=== PATIENT | female | born 1980 | race Caucasian/White ===

== ENCOUNTER 2016-08-18 00:23 | Inpatient (IN) | payer OTHER ==
[~2016-08-18] VITALS: Ht 152.4 cm; Wt 80.3 kg
[~2016-08-18 00:23] MED LIST: HYDR-4003 PO
[2016-08-18] MEDS ORDERED: Lactated Ringer's 1,000 ML IV PRN (08:29)
[2016-08-18] MEDS ORDERED: Sodium Chloride LOK Flush 10 mL Syringe IVFLUSH PRN (08:30)
[2016-08-18] MEDS ORDERED: Oxytocin 30 Units/500 mL LR 30 UNITS in IV Premix 1 EACH IV PRN (08:30)
[2016-08-18] MEDS ORDERED: Methylergonovine 0.2 mg/mL Inj IM PRN (08:30)
[2016-08-18] MEDS ORDERED: Misoprostol 25 mCg/0.25 Tablet VAGINAL SCH (08:30)
[2016-08-18] MEDS ORDERED: Oxytocin 10 Unit/mL Inj IM PRN (08:30)
[2016-08-18] MEDS ORDERED: Carboprost 250 mCg/mL Inj IM PRN (08:30)
[2016-08-18] MEDS ORDERED: Hemorrhage Kit, Post Partum XX ONE (08:30)
[2016-08-18] MEDS ORDERED: fentaNYL-PF 50 mCg/mL 2 mL Inj IVPUSH PRN (08:35)
[2016-08-18] MEDS ORDERED: Ondansetron 2 mg/mL 2 mL Inj IVPUSH PRN (08:35)
[2016-08-18 09:38] LABS: Mean Corpuscular Volume 91.7 fL (81-100)
--- NOTE | 2016-08-18 16:15 | PCM.HPOB ---
Subjective Date of Service: Aug 18, 2016 Referring Provider: Admitting Physician: Elba Ramachandran MD Primary Care Physician: Nopcp Attending Physician: Elba Ramachandran MD Chief Complaint Induction of labor History of Present History of Present Illness 36-year-old G3A2P0 at 41 weeks 2 days gestation presenting to the [facility] for induction of labor. She has a high risk complicated by multiple large uterine fibroids and small pelvis. Additionally, there was concern early on for neural tube defects with a positive lemon sign on ultrasound but repeat scans showing no evidence of open neural tube defect. She had an amniocentesis done on 03/14/2016 which showed a normal karyotype. She was positive for Anti-D Antibody but this is likely related to receiving Rhogam on and she did receive another injection of Rhogam on 05/19/2016. 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 Patient reports normal movement with contractions every 4-5minutes. She denies vaginal bleeding or discharge, headaches, dizziness, changes in vision, GI or symptoms. NST on 08/12/16 wnl. OB History: (3), Para, (2), Living (1) Obstetrical Complications: Other (Multiple large uterine fibroids; Positive Lemon sign on US with no evidence of open neural tube defect. Normal karyotype on amniocentesis. Hx of HSV. ) Past Medical History Obstetrical History: Induced - 1995 Induced - 1997 Medical History: HSV Surgical History: [place] teeth removal 2007 Social History: Lives locally with significant other/father of baby. Hx Tobacco Use: Yes Smoking Status: Former Smoker Hx Alcohol Use: No Hx Substance Use: No Past Family History Family History Maternal grandmother- cancer Living Arrangement: with Family Genetic Screening/Counseling Genetic Screening/Counseling: Negative Review of Systems ROS All other systems reviewed and negative, except as noted. Medications Home medications Valdemar-Mag 200mg-100mg Lysine vitamins Valacyclovir 500mg po bid Vitamin D- 400mg daily Allergy Coded Allergies: No Known Allergies (Unverified , 02/14/16) Exam Vital Signs All vital signs available at the time of this entry have been reviewed. Constitutional: Well-developed, Well-nourished HEENT: Atraumatic, PERRLA Lungs: Clear to Auscultation Heart: Regular Rate/Rhythm, No Murmurs/Rubs/Gallops Abdomen: Gravid, Normal bowel sounds Extremities: Pulses Palpable x4, Warm, Edema Neurological/Psychiatric: Alert, Oriented X3, No Acute Distress Neuro: Grossly Neurologically Intact Additional Information Current Medications Misoprostol 25 mcg Q4H VAGINAL Last administered on 08/18/16 09:53; Admin Dose 25 MCG; Start 08/18/16 at 08:30 Fentanyl Citrate Dose 50 mcg to 100 mcg Q1H PRN IV PUSH Ondansetron HCl Dose: 4 mg to 8 mg Q4H PRN IV PUSH Misoprostol 25 mcg Q4H VAGINAL Last administered on 08/18/16 09:53 Labs/Diagnostics Labs 08/18/16 09:20: White Blood Count 14.3, Red Blood Count 4.44, Hemoglobin 14.2, Hematocrit 40.7, Mean Corpuscular Volume 91.7, Mean Corpuscular Hemoglobin 32.0, Mean Corpuscular Hemoglobin Concent 34.9, Red Cell Distribution Width 14.8, Platelet Count 253 . Ultra Sound 03/14/2016- OB Ultrasound Impression: Sol in cephalic presentation. Four chamber view of the heart and outflow tracts not well seen. Sagittal view of spines was also suboptimally visualized. Slight prominence of the third ventricle with normally sized lateral ventricles. Remainder of anatomy appeared normal. Multifibroid uterus. Radiologist: Kofi Crews MD . Lab/Diagnostic Information Chlamydia- negative Gonorrhea- negative RPR- non reactive HBsAg- negative HIV screen- negative Initial labs: 01/15/2016 HbA1c 5.5, T4 1.04, HepC-negative. Maternal Blood Type: B Hx Rho(D) Immune Globulin: No Antibody Screen: + Anti-D Antibody likely related to Rhogam given 03/14/16. Group B Strep Results: Negative Rubella: Immune Lab History: Positive for: Hx HIV (on acyclovir) OB Intrapartum Assessment/Plan Assessment 36 y/o G3A2P0 at 41 weeks 2 days gestation presenting to the [facility] for induction of labor. She has a high risk complicated by multiple large uterine fibroids and small pelvis. Additional concerns include a hx of HSV, RH negative, positive Anti-D antibody and concern early in her for neural tube defects with a positive lemon sign on ultrasound. Repeat scans have shown shown no evidence of open neural tube defect. Currently on prophylactic alcyclovir. Due to her small pelvis and advanced gestation she may need a delivery but patient has requested a trial of labor. Problems: (1) Uterine leiomyoma Status: Acute ICD Code: D25.9 (2) Post-term , 40-42 weeks of gestation Status: Acute ICD Code: O48.0 Pain Management: Spinal anesthesia Pain Evaluation: Adequate Pain Control Intrapartum plan IOL with trial of labor and possible . Post plan: Continue routine post care Mary Arciniega DO Aug 18, 2016 13:43
[2016-08-18] MEDS ORDERED: Lactated Ringer's 1,000 ML IV SCH (17:46)
[2016-08-18] MEDS ORDERED: diphenhydrAMINE 25 mg Capsule PO PRN (19:10)
--- NOTE | 2016-08-18 19:23 | PCM.PNOBIP ---
Subjective Date of Service Aug 18, 2016 Subjective intermittent contractions mild every 10 minutes were stronger earlier today. Pain Management: No or Minimal Pain Gastrointestinal: Good Appetite, No N/V Activity: Ambulating Independently Group B Strep Results: Negative Rubella: Immune Blood Type: B Labs Laboratory Tests 08/18/16 09:20: White Blood Count 14.3, Red Blood Count 4.44, Hemoglobin 14.2, Hematocrit 40.7, Mean Corpuscular Volume 91.7, Mean Corpuscular Hemoglobin 32.0, Mean Corpuscular Hemoglobin Concent 34.9, Red Cell Distribution Width 14.8, Platelet Count 253 Exam Vital Signs Vital Signs Contraction frequency in minutes: MVUs: Vital Signs: VS reviewed, stable Heart Tracings Heart Tones Baseline 125 bpm Heart Rate Variability: Moderate Heart Rate Accelleration: Present Heart Rate Deceleration: Absent Heart Rate Category: I Tocometry/IUPC Contraction frequency in minutes: MVUs: Sterile Vaginal Exam Cervical Dilation: 1 cm (1.5 ) Cervical Effacement: 50 % Station: -3 Exam General: Alert, Oriented X3, No Acute Distress Additional Information Cephalic presentation confirmed by bedside US OB Intrapartum Assessment/Plan Assessment 36 y/o at 41 weeks 2 days gestation induction of labor for late term. complicated by: 1. multiple large uterine fibroids and concern of possible small pelvis. 2. H/O of HSV 3. RH negative. negative antibody screen on admission. 4. Elevated AFP and early a positive lemon sign on ultrasound. Repeat scans have shown shown no evidence of open neural tube defect. Continue cervical ripening. Will switch to Cervidil. Problems: (1) Uterine leiomyoma Status: Acute ICD Code: D25.9 (2) Post-term , 40-42 weeks of gestation Status: Acute ICD Code: O48.0 Pain Evaluation: Adequate Pain Control Post plan: Continue routine post care Donis Azar MD Aug 18, 2016 19:23
[2016-08-18] MEDS ORDERED: VALA500T2 PO (22:34)
--- NOTE | 2016-08-18 22:56 | PCM.DC.OB ---
Obstetrical Discharge Summary Date of Service Aug 18, 2016 Date of hospital admission Aug 18, 2016 at 07:05 Date of Discharge: Aug 18, 2016 Providers Admitting Physician: Elba Ramachandran MD Primary Care Physician: Ora Attending Physician: Elba Ramachandran MD Diagnosis at Time of Discharge 36 y/o at 41 weeks 2 days gestation induction of labor for late term on hold for short staffing. Category 1 tracing. Problems: (1) Uterine leiomyoma Status: Acute ICD Code: D25.9 (2) Post-term , 40-42 weeks of gestation Status: Acute ICD Code: O48.0 Brief History and Physical: 36-year-old G3A2P0 at 41 weeks 2 days gestation presenting to the [facility] for induction of labor. Hospital Course: complicated by: 1. multiple large uterine fibroids and concern of possibly small pelvis. 2. H/O of HSV on suppression 3. RH negative. negative antibody screen on admission. 4. Elevated AFP and early a positive lemon sign on ultrasound. Repeat scans have shown shown no evidence of open neural tube defect. Amniocenteses normal karyotype. Patient received one dose of misoprostol on admission. Plan of care was to continue cervical ripening with Cervidil overnight but secondary to shortage in nursing staff were not able to continue with induction overnight. I explained situation to patient hold induction overnight and to reassess staff situation in the morning and may restart induction in the morning. Patient desires to sleep the night at home and will reschedule induction to Thursday08/20/16 at 7 am, patient to call one hour before the scheduled induction to confirm bed availability. Patient aware that availability of bed is not guaranteed and may have to be rescheduled again. Patient desires discharge tonight and will return if contractions worsen, loss of fluid or decreased movements. Reviewed preeclampsia and labor precautions with patient and all questions were answered. 136/83, 16, HR 81 , 36.8 , pain at 1. FHT: 130 moderate variability , positive accelerations and no deceleration. category 1. Cervix 1.5cm/60%/0/intact membranes. Membranes were stripped. Lext: no edema. Valacyclovir HCl (Valtrex) 500 Mg Tablet 500 MG PO BID Prescribed by: RUBY NORIEGA MD Discontinued Medications Hydrocodone-Acetaminophen 5-325 mg (Hydrocodone-Acetaminophen 5-325 mg) 1 Each Tablet 1-3 TABLET PO Q4H PRN PRN For Pain Prescribed by: DANITZA CANALES MD Disposition home. Follow-up plan Keep schedule d appointment tomorrow with OB provider- [facility] Induction to Thursday08/20/16 at 7 am, patient to call on Thursday08/20/16 at 6 am to confirm bed availability. Discharge Diet: Heart Healthy Discharge Activity-General: Activity as energy allows, No lifting >15 pounds for 2 weeks Ruby Noriega MD Aug 18, 2016 22:55
[2016-08-18 23:06] VITALS: BP 136/83; PULSE 81; RESP 16
== END 2016-08-18 23:30 | disposition home or self-care (01) | DRG 782 ==
LOC: FBC 07:05
PROVIDERS: ADMIT Obstetrics & Gynecology; ATTEND Obstetrics & Gynecology
PROC: 3E033VJ Introduction of Other Hormone into Peripheral Vein, Percutaneous Approach (ICD-10-PCS; principal; 2016-08-18)
PROC: 10H07YZ Insertion of Other Device into Products of Conception, Via Natural or Artificial Opening (ICD-10-PCS; 2016-08-18)
DX: O48.0 Post-term pregnancy (principal); O34.13 Maternal care for benign tumor of corpus uteri, third trimester; D25.9 Leiomyoma of uterus, unspecified; O99.333 Smoking (tobacco) complicating pregnancy, third trimester; F17.200 Nicotine dependence, unspecified, uncomplicated; Z3A.41 41 weeks gestation of pregnancy; O09.523 Supervision of elderly multigravida, third trimester

== ENCOUNTER 2016-08-19 10:41 | Inpatient (IN) | payer OTHER ==
[~2016-08-19] VITALS: Ht 154.9 cm; Wt 78.9 kg
[~2016-08-19 10:41] MED LIST changes: -HYDR-4003 PO; +VALA500T2 PO
[2016-08-19] MEDS ORDERED: Lactated Ringer's 1,000 ML IV PRN ×2 (11:14→11:47)
[2016-08-19] MEDS ORDERED: Carboprost 250 mCg/mL Inj IM PRN ×2 (11:15→11:50)
[2016-08-19] MEDS ORDERED: Oxytocin 30 Units/500 mL LR 30 UNITS in IV Premix 1 EACH IV PRN ×3 (11:15→18:45)
[2016-08-19] MEDS ORDERED: Oxytocin 10 Unit/mL Inj IM PRN ×2 (11:15→11:50)
[2016-08-19] MEDS ORDERED: Ondansetron 2 mg/mL 2 mL Inj IVPUSH PRN ×3 (11:15→23:45)
[2016-08-19] MEDS ORDERED: Sodium Chloride LOK Flush 10 mL Syringe IVFLUSH PRN ×2 (11:15→11:50)
[2016-08-19] MEDS ORDERED: Hemorrhage Kit, Post Partum XX ONE ×2 (11:15→11:50)
[2016-08-19] MEDS ORDERED: Methylergonovine 0.2 mg/mL Inj IM PRN ×2 (11:15→11:50)
[2016-08-19] MEDS ORDERED: diphenhydrAMINE 50 mg Capsule PO PRN (11:50)
[2016-08-19 12:11] LABS: Mean Corpuscular Hemoglobin 31.9 pg (27.0-35.0); Mean Corpuscular Volume 91.2 fL (81-100)
--- NOTE | 2016-08-19 12:20 | PCM.HPOB ---
Subjective Date of Service: Aug 19, 2016 Referring Provider: Admitting Physician: Elba Ramachandran MD Primary Care Physician: Nopcp Attending Physician: Elba Ramachandran MD Chief Complaint Increase contractions at 41 weeks gestation History of Present History of Present Illness 36-year-old woman 020 41 weeks 3 days estimated due date of 08/09/2016. Presents to outpatient clinic for complaint of increased contractions, more frequent and more intense and were affecting her sleep. She was scheduled for an induction of labor on August 18, however was sent home and the plan was to reschedule. However this morning and recheck in the office she was 80% effaced , 3 cm dilated and had moved to -2 station. Complications affecting Advanced maternal age, amniocentesis done 03/14/2016 demonstrated normal XY. RhoGAM was given at time of amniocentesis on 03/14/2016, and 05/19/2016 2 outbreaks of herpes simplex virus during , has been on prophylaxis since 36 weeks gestation, was discussed the high risk of transmission and possible delivery if needed. Ultrasound from maternal medicine at [facility] showed no evidence of open neural tube defects, there was elevated AFP. Positive anti-D antibody. Blood type B negative Antibody screen negative Rubella immune RPR nonreactive Hepatitis B surface antigen negative Hepatitis C negative HIV nonreactive Group B strep negative Committee and gonorrhea negative Diabetes screen negative, A1c 5.5 Past Medical History Obstetrical History: 2 previous abortions Gynecologic History: Multiple uterine fibroids Medical History: Denies Surgical History: Elective at 15 years old [place] teeth extraction Hx Tobacco Use: Yes Smoking Status: Former Smoker Years of Smokin Hx Alcohol Use: Yes Hx Substance Use: Yes (marijuana, 4 days ago was most recent, states she has been using it to help her sleep during ) Past Family History Family History Maternal grandmother breast cancer Paternal grandfather lung cancer, "cancer" Father " from heart problems" history of substance chemical abuse Mother alive and healthy Review of Systems Constitutional: Y: Chills, Dizziness, Pain, Weakness Eyes: Denies: Blurred Vision Cardiovascular: Denies: Chest Pain, Palpitations Respiratory: Denies: Cough, Pleuritic Chest Pain Gastrointestinal: Reports: Nausea, Denies: Abdominal Pain Genitourinary: Denies: Dysuria Musculoskeletal: Denies: Limitation of Function, Swelling Skin: Denies: Rash Neurological: Denies: Change in Speech, Confusion, Somnolence Psychologic: Denies: Agitation Medications Home medications vitamin daily Allergy Coded Allergies: No Known Allergies (Unverified , 02/14/16) Exam Vital Signs 36.4C 89 bpm, 18 respirations per minute 122/77, weight 174 pounds Exam 130 bpm Baseline, moderate variability, 15 x 15, no decelerations Objective Patient is sitting on medicine ball, moderate distress during contractions. Constitutional: Well-developed, Well-nourished HEENT: Atraumatic, EOMI, Scleral Anicteric Lungs: Clear to Auscultation Heart: Regular Rate/Rhythm, Normal S1, Normal S2, No Murmurs/Rubs/Gallops Abdomen: Gravid Lymphatic: Normal: Axilla Palpation of Nodes, Neck Palpation of Nodes Extremities: Warm, No Edema Neurological/Psychiatric: Alert, Oriented X3, Cooperative, No Acute Distress Neuro: No Clonus noted, Normal Tone, Cranial Nerves 3-12 nl, Normal Speech Labs/Diagnostics Labs CBC, pending. Ultra Sound 07/15/2016 ultrasound impression growth biometry is concordant and appropriate for gestational age Anterior placenta, no previa Limited anatomy within normal limits. RICHARD 16.5 estimated weight 6 lbs. 4 oz., 41st percentile Maternal Blood Type: B Group B Strep Results: Negative Previous Infant with GBS: No Rubella: Immune OB Intrapartum Assessment/Plan Assessment 36-year-old woman at 41 weeks gestation presents with increased frequency and intensity of contractions, cervical dilation 3 cm, effacement 80%, and station - 2 without rupture of membranes. is complicated by advanced maternal age, numerous fibroids, she has received several ultrasounds from [facility] most recently 07/15/2016, patient states that she has been told that previous questionable anatomy such as poor view of all 4 chambers of the heart, and lemon sign, has resolved. Problems: (1) Currently Qualifiers: Weeks of gestation: 41 weeks Qualified Code: O48.0 - Post-term Status: Acute ICD Code: Z33.1 (2) Uterine leiomyoma Status: Acute ICD Code: D25.9 (3) Post-term , 40-42 weeks of gestation Status: Acute ICD Code: O48.0 Pain Management: Patient said she would like to do without an epidural, however is not completely opposed to it if the discomfort becomes too much for her to handle. Intrapartum plan Mother and monitoring, routine, plan for spontaneous vaginal delivery. Franklin Kovacs DO Aug 19, 2016 11:34
--- NOTE | 2016-08-19 16:37 | PCM.PNOBIP ---
Subjective Date of Service Aug 19, 2016 Subjective Doing well. Declined SROM and pitocin earlier as she was kristin on her own. Breathing through contractions. Group B Strep Results: Negative Rubella: Immune Blood Type: B Labs Laboratory Tests 08/19/16 11:45: White Blood Count 17.9, Red Blood Count 4.52, Hemoglobin 14.4, Hematocrit 41.2, Mean Corpuscular Volume 91.2, Mean Corpuscular Hemoglobin 31.9, Mean Corpuscular Hemoglobin Concent 35.0, Red Cell Distribution Width 14.8, Platelet Count 252 Exam Vital Signs Vital Signs Contraction frequency in minutes: MVUs: Vital Signs: VS reviewed, concerns are (BP elevated 120-140's/70-80's. ) Heart Tracings Heart Tones Baseline 140/moderate/15x15 accels bpm Heart Rate Variability: Moderate Heart Rate Deceleration: Absent Heart Rate Category: I Tocometry/IUPC Contraction frequency in minutes: Q9 Sterile Vaginal Exam AROM completed with small amount of clear fluid Cervical Dilation: 4 cms Cervical Effacement: 80 % Station: -2 Exam General: Alert, Oriented X3, Cooperative, No Acute Distress OB Intrapartum Assessment/Plan Problems: (1) Currently Qualifiers: Weeks of gestation: 41 weeks Qualified Code: O48.0 - Post-term Status: Acute ICD Code: Z33.1 (2) Uterine leiomyoma Status: Acute ICD Code: D25.9 (3) Post-term , 40-42 weeks of gestation Plan: Continue expectant management at this time. AROM completed and she declines starting pitocin at this time. She understands that she will need to start pitocin if labor does not ensure after AROM and the increased risk of ascending infection after prolonged period of time of rupture. heart tones are category 1., she does however have a narrow pelvis. Will follow closely. Blood pressures are also mildly elevated, likely related to pain. CBC is normal , will order CMP and monitor. Magnesium as needed for severe range BP. Status: Acute ICD Code: O48.0 Elba Ramachandran MD Aug 19, 2016 16:37
[2016-08-19] MEDS: Lactated Ringer's 1,000 ML IV SCH ×2 (18:41→23:31)
--- NOTE | 2016-08-19 21:52 | PCM.PNOBIP ---
Subjective Date of Service Aug 19, 2016 Subjective Doing well, breathing through contractions which are very painful. On pitocin, currently at 4mu. Group B Strep Results: Negative Rubella: Immune Blood Type: B Labs Laboratory Tests 08/19/16 11:45: White Blood Count 17.9, Red Blood Count 4.52, Hemoglobin 14.4, Hematocrit 41.2, Mean Corpuscular Volume 91.2, Mean Corpuscular Hemoglobin 31.9, Mean Corpuscular Hemoglobin Concent 35.0, Red Cell Distribution Width 14.8, Platelet Count 252 Exam Vital Signs Vital Signs Contraction frequency in minutes: MVUs: Vital Signs: VS reviewed, stable (BP 120-130's/70-80's) Heart Tracings Heart Tones Baseline 130/moderate/ bpm 15x15 accelerations Heart Rate Category: I Tocometry/IUPC Contraction frequency in minutes: 150s/MVUs: with tripling and irregular monitors Sterile Vaginal Exam Cervical Dilation: 5 cms Cervical Effacement: 90 % Station: -2 Exam General: Alert, Oriented X3, Cooperative, No Acute Distress OB Intrapartum Assessment/Plan Problems: (1) Currently Qualifiers: Weeks of gestation: 41 weeks Qualified Code: O48.0 - Post-term Plan: IUPC placed at bedside. Irregular contraction pattern. Continue pitocin , not yet in active labor. Status: Acute ICD Code: Z33.1 (2) Uterine leiomyoma Status: Acute ICD Code: D25.9 (3) Post-term , 40-42 weeks of gestation Status: Acute ICD Code: O48.0 Intrapartum plan: Continue expected management, IUPC placed Intrapartum Pain Management: May have epidural when desired Elba Ramachandran MD Aug 19, 2016 21:52
[2016-08-19] MEDS: fentaNYL-PF 50 mCg/mL 2 mL Inj IVPUSH PRN ×2 (22:15→23:24)
[2016-08-19] MEDS ORDERED: Lactated Ringer's 500 ML IV ONE (23:41)
[2016-08-19] MEDS ORDERED: EPHEDrine Sulfate 50 mg/mL Inj IVPUSH PRN (23:45)
[2016-08-19] MEDS ORDERED: Atropine 1 mg/10 mL (Code) Syringe IVPUSH PRN (23:45)
[2016-08-19] MEDS ORDERED: fentaNYL 2 mCg/mL-Bupiv 0.125% 100 ML EPIDURAL SCH (23:45)
--- NOTE | 2016-08-20 00:22 | PCM.HPANE ---
Patient Data Date of Service: Aug 19, 2016 Surgeon Admitting Provider:Elba Ramachandran MD Attending Provider:Elba Ramachandran MD Primary Care Physician:Ora Other Provider:Tracee Ramirez Anesthesia Reason for Visit Term Early Labor TERM EARLY LABOR Ht/WT & BMI Height (Centimeters): 155 Weight (Kilograms): 78.9 Body Mass Index 32.9 Allergies Coded Allergies: No Known Allergies (Unverified , 02/14/16) Diabetes History Hx Diabetes?: No MRSA MRSA: No Medications Hypertension Medication: No Home Meds Incl Beta Shabnam: No Active Scripts Valacyclovir HCl (Valtrex)500 Mg [id number] Mg PO BID #20 TABLET Ref 0 Prov:Donis Azar MD 08/18/16 Discontinued Scripts Hydrocodone-Acetaminophen 5-325 mg 1 Each Tablet1-3 Tablet PO Q4H PRN For Pain # 20 TABLET Prov:Miguelito Price MD 02/14/16 History History of ENT Problems?: No Hx of Heart Problems?: No Cardiovascular History: Denies:: Congestive Heart Failure Hypertension Hx of Respiratory Problem?: No Respiratory History: Denies:: Tuberculosis Hx Neurologic Problems?: No Hx of GI Problems?: No Hx of Problems?: No Female Hx: Positive for:: Currently Hx Musculoskeletal Problems?: No Hx of Psycho/Social Problems?: No Hx Diabetes: No Hx Alcohol Use: YesHx Substance Use: Yes (marijuana, 4 days ago was most recent, states she has been using it to help her sleep during ) Smoking Status: Former Smoker Stop/Bang Treated for Sleep Apnea?: No Do You Have a CPAP Machine?: No KYLER Risk Assessment: Low Risk, <3 Yes Risk Assessment Category Category 1A: Patient has history of documented sleep apnea, and HAS NOT received any narcotic, sedative or anesthesia administration during this stay. Category 1B: Patient has history of documented sleep apnea, and HAS received any narcotic , sedative or anesthesia administration during this stay Category 2: Patient has SUSPECTED Obstructive Sleep Apnea, and HAS received any narcotic , sedative or anesthesia administration during this stay. Category 3: Patient has SUSPECTED Obstructive Sleep Apnea and HAS NOT received narcotic, sedative or anesthesia administration during this stay. Category 4: Outpatient in Procedural Areas with known sleep apnea or who screen positive for High Risk via the STOP/BANG questionnaire. Exam Exam Vital Signs See OB documentation General Appearance: Alert, Oriented X3, Cooperative HEENT/AIRWAY: MP 2, Neck Movement (Full), Mouth Opening (Wide) Lungs: Clear to Auscultation, Normal Air Movement Heart: Regular Rate/Rhythm, Normal S1, Normal S2 Meds/Labs/Diagnostics Admission Meds Current Medications Lactated Ringer's (Lr) 1,000 ml @ 125 mls/hr Q8H IV Last administered on t 23:31; Start 08/19/16 at 11:47 Labs Test 08/19/16 11:40 08/19/16 11:45 08/19/16 22:15 Hold Urine Received (Received) Urine Opiates Screen Negative Urine Methadone Screen Negative Urine Barbiturates Screen Negative Urine Amphetamines Screen Negative Urine Benzodiazepines Screen Negative Urine Cocaine Metabolite Screen Negative Urine Cannabinoids Screen Positive White Blood Count 17.9th/mm3 (3.8-10.1) Red Blood Count 4.52mil/mm3 (3.90-5.20) Hemoglobin 14.4g/dL (12.0-15.6) Hematocrit 41.2% (35.0-46.0) Mean Corpuscular Volume 91.2fL (81-100) Mean Corpuscular Hemoglobin 31.9pg (27.0-35.0) Mean Corpuscular Hemoglobin Concent 35.0% (32.0-37.0) Red Cell Distribution Width 14.8% (12.3-15.4) Platelet Count 252bil/L (150-400) Sodium Level 132mEq/L (134-144) Potassium Level 4.0mEq/L (3.5-5.2) Chloride Level 96mEq/L (97-108) Carbon Dioxide Level 18mmol/L (18-29) Blood Urea Nitrogen 10mg/dL (6-20) Creatinine 0.68mg/dL (0.57-1.00) Estimat Glomerular Filtration Rate 139mL/min (>59) Glucose Level 114mg/dL (60-99) Calcium Level 9.1mg/dL (8.5-10.1) Total Bilirubin 0.5mg/dL (0.0-1.2) Aspartate Amino Transf (AST/SGOT) 18U/L (0-50) Alanine Aminotransferase (ALT/SGPT) 13U/L (0-32) Alkaline Phosphatase 190U/L (25-150) Total Protein 7.2g/dL (6.4-8.4) Albumin 3.6g/dL (3.4-5.0) Plan Impression Patient chart reviewed, patient interviewed and anesthestic plan with risks, benefits, and alternatives discussed, and informed consent obtained. NPO Status: Full ASA Physical Status: ASA1 Normal Healthy Anesthetic Plan: Epidural Bene/Risks/Altern/Consents: Yes HP Complete Prior to Induction: Yes Daniel Bellamy MD Aug 19, 2016 23:40
[2016-08-20] MEDS ORDERED: Sodium Chloride LOK Flush 10 mL Syringe IVFLUSH SCH (00:30)
[2016-08-20] MEDS ORDERED: EPHEDrine/NS 5 mg/mL 5 mL Syringe ONE (01:01)
--- NOTE | 2016-08-20 01:04 | PCM.PNOBIP ---
Subjective Date of Service Aug 20, 2016 Subjective Called for bradycardia shortly after epidural placement. Patient checked by RN and cervix 6-7 now and FSE placed. BP dropped from 120-140's SBP down to 90's after epidural. Pitocin had been at 4mu and turned off with deceleration. Group B Strep Results: Negative Rubella: Immune Blood Type: B Labs Laboratory Tests 08/19/16 11:45: White Blood Count 17.9, Red Blood Count 4.52, Hemoglobin 14.4, Hematocrit 41.2, Mean Corpuscular Volume 91.2, Mean Corpuscular Hemoglobin 31.9, Mean Corpuscular Hemoglobin Concent 35.0, Red Cell Distribution Width 14.8, Platelet Count 252 Exam Vital Signs Vital Signs Contraction frequency in minutes: MVUs: Vital Signs: VS reviewed, stable (120's-140's/70-80's, decreased to 80-90's/40- 50's with epidural ) Heart Tracings Heart Tones Baseline 140's/moderate/early and occasional late deceleration w/ contractions, prior to epidural was having early decelerations Tocometry/IUPC [id number] frequency in minutes: 150 MVUs: Sterile Vaginal Exam Per RN 6-7 cm Exam General: Alert, Oriented X3, Cooperative OB Intrapartum Assessment/Plan Problems: (1) Currently Qualifiers: Weeks of gestation: 41 weeks Qualified Code: O48.0 - Post-term Plan: Continue resuscitation at this time. Pitocin turned off, 02 given , receiving IVF bolus at this time. Will give ephedrine to help with blood pressure issues. May use terbutaline as needed to help desk consultant with recovery. Will restart pitocin when blood pressures and heart tones stabilize. Status: Acute ICD Code: Z33.1 (2) Uterine leiomyoma Status: Acute ICD Code: D25.9 (3) Post-term , 40-42 weeks of gestation Status: Acute ICD Code: O48.0 Intrapartum plan: Continue expected management, IUPC placed Intrapartum Pain Management: May have epidural when desired Elba Ramachandran MD Aug 20, 2016 01:04
[2016-08-20] MEDS: Lactated Ringer's 1,000 ML IV SCH ×3 (01:18→07:08)
[2016-08-20] MEDS ORDERED: Lactated Ringer's 1,000 ML IV SCH (09:43)
[2016-08-20] MEDS ORDERED: oxyCODONE-Acetamin 5-325 mg Tablet PO PRN (09:45)
[2016-08-20] MEDS ORDERED: Carboprost 250 mCg/mL Inj IM PRN (09:45)
[2016-08-20] MEDS ORDERED: LANOlin HPA 7 Gm Ointment TOPICAL PRN (09:45)
[2016-08-20] MEDS ORDERED: Methylergonovine 0.2 mg/mL Inj IM PRN (09:45)
[2016-08-20] MEDS ORDERED: Witch Hazel-Glycerin Pads TOPICAL PRN (09:45)
[2016-08-20] MEDS ORDERED: Oxytocin 10 Unit/mL Inj IM PRN (09:45)
[2016-08-20] MEDS ORDERED: Hemorrhage Kit, Post Partum XX ONE (09:45)
[2016-08-20] MEDS ORDERED: Oxytocin 30 Units/500 mL LR 30 UNITS in IV Premix 1 EACH IV PRN (09:45)
[2016-08-20] MEDS ORDERED: Benzocaine (Dermoplast) 20% 60 Gm Spray TOPICAL PRN (09:45)
--- NOTE | 2016-08-20 09:54 | PCM.OBVAG ---
Vaginal Delivery Date of Service Aug 20, 2016 Pre Operative Diagnosis Pre Operative Diagnosis 41 weeks 3 days Gestation AMA Uterine Fibroids Post Operative Diagnosis Post Operative Diagnosis 41 weeks 3 days Gestation AMA Uterine Fibroids Second Degree Perineal laceration Procedure Procedure: with repair of second degree perineal laceration Obstetical Procedure: Normal Spontaneous Vaginal Delivery Service Cashier/Bundle Helper Provider and Bundle Helper: Provider: Roxanne Cruz MD Resident: Mary Arciniega DO PGY1 Indication for Procedure Indication for Procedure 36 y/o G3 now P1 at 41weeks and 3days gestation whose was complicated by an enlarged fibroid uterus, AMA, lemon sign on anatomy ultrasound, but negative aneuploidy screening who was brought in for an elective induction. Induction: Induction of labor, AROM, Progressed normally through labor Findings Obstetrical Findings: (Male), Cord (3 Vessel), Presentation (OA), 1 minute (7), 5 minutes (9), Placenta (Intact/Normal), Perineal Laceration (2nd degree) Analgesia/Medications Obstetrical Anesthesia: Epidural Procedure Details Procedure Details Patient was completely dilated at 0528 and began pushing. There was thick meconium stained amniotic fluid during this time and pediatricians were notified and present at delivery. The was delivered in an OA position at 0923. The placenta was delivered intact with a three vessel cord at 0929hrs. On insepction of the vagina, cervix and perineum there was a small second degree perineal laceration that was repaired in the standard fashion with 0-vicryl suture. Cord blood was sent. was placed on maternal chest for skin to skin bonding and infant's weight was not immediately available at time of delivery. IV Intake/Output Catheters: None Blood Loss & Administration Estimated Blood Loss: 200 Blood Admin during procedure: No Post Procedure Plan Post Procedure Plan Routine care Post delivery Condition: Mom stable Roxanne Cruz MD Aug 20, 2016 09:54
[2016-08-20] MEDS ORDERED: Ascorbic Acid 500 mg Tablet PO SCH (17:30)
[2016-08-21 06:26] LABS: Mean Corpuscular Hemoglobin 31.8 pg (27.0-35.0); Mean Corpuscular Volume 93.9 fL (81-100)
[2016-08-21] MEDS ORDERED: DOCU-41 PO (08:24)
[2016-08-21] MEDS ORDERED: FERR-74 PO (08:24)
[2016-08-21] MEDS ORDERED: IBUP800T28 PO (08:24)
[2016-08-21] MEDS ORDERED: Ascorbic Acid PO (08:24)
--- NOTE | 2016-08-21 09:21 | PCM.DIOB ---
Obstetrical Disch Instruction Dates of Hospitalization Date of Hospital Admission Aug 19, 2016 at 11:01 Providers Admitting Physician: Elba Ramachandran MD Primary Care Physician: Noplonny Attending Physician: Elba Ramachandran MD Discharge Diagnosis Discharge Diagnosis Post-term with normal spontaneous vaginal delivery Multiple uterine fibroids Problems: Diet Discharge Diet: No restrictions Activity Discharge Activity-General: Pelvic Rest for 6 weeks Additional Instructions Discharge Instructions Continue your vitamin. Please take the iron and vitamin c together for your anemia. Be sure to follow up in [facility] at [facility]. Pelvic rest for 6 weeks (nothing per vagina including intercourse, tampons) If you have a fever greater than 100.4, please call [facility]. There is always someone behavioral intervention specialist to talk to. If you have an increase in bleeding, call [facility]. If you have a lot of bleeding suddenly, especially if you have symptoms of dizziness & weakness with it, get emergency help. If you start experiencing extreme depression, especially if you feel that you are a danger to yourself or your family, seek emergency help. You have been through a lot -- BE SURE TO TAKE CARE OF YOURSELF. Follow Up Plan Follow-up Provider (F9): [facility] Follow-up appointment: Weeks (6) Mary Arciniega DO Aug 21, 2016 08:20
--- NOTE | 2016-08-21 09:36 | PCM.PNOBPP ---
Subjective Date of Service Aug 21, 2016 Post : Spontaneous Vaginal Delivery Visit History 36 y/o now P1 who is post- day #1 after a with repair of a second degree perineal laceration. was complicated by an enlarged fibroid uterus, advanced maternal age, and lemon sign on ultrasound with negative aneuploidy screening who presented at 41 weeks 3days for an induction of labor on August 18. However, she was sent home and planned to rescheduled. She was evaluated the following day in the clinic and found to be 80% effaced, 3cm dilated, -2station and sent to [facility]. She was completely dilated at 0528. he patient delivered at 0923 and a small second degree perineal laceration was noted and repaired. The placenta was delivered intact with a three vessel cord at 0929. A Associate Project Manager was present at time of delivery due to thick meconium. . Subjective Patient is feeling well this morning. Pain is well controlled, lochia normal and she is voiding and ambulating without difficulty. She is without issue. Appetite is good and she denies nausea/vomiting. She plans to use condoms initially and possibly an IUD (custodial) for contraception. . Lochia: Normal Pain Management: PO pain meds Gastrointestinal: Good Appetite, No N/V, Normal Bowel Movement Postop Activity: Ambulating Independently Group B Strep Results: Negative Rubella: Immune Blood Type: B Labs Laboratory Tests 08/21/16 06:12: White Blood Count 17.4, Red Blood Count 3.58, Hemoglobin 11.4, Hematocrit 33.6, Mean Corpuscular Volume 93.9, Mean Corpuscular Hemoglobin 31.8, Mean Corpuscular Hemoglobin Concent 33.9, Red Cell Distribution Width 14.9, Platelet Count 189 Exam Vital Signs Vital Signs Afebrile (36.6), BP 112/63, pulse 72, RR 16 Vital Signs: VS reviewed, stable Exam Abdomen: Fundus firm, Abdomen soft, Abdomen appropriately tender Perineum: Laceration : Voiding without difficulty Extremities: Edema 1+ Lungs: Clear to Auscultation Heart: Regular Rate/Rhythm General: Alert, Oriented X3 OB Post Assessment/Plan Assessment 36 y/o now P1 post- day #1 after a with repair of a second degree perineal laceration. Uterine fibroids Problems: (1) Post-term , 40-42 weeks of gestation Plan: -Breast feeding going well, continue to encourage -Pain control, Ibuprofen 800mg po q8h prn -Anticipated discharge 08/21/16. -Contraception plan at visit -OB post- follow up in 6 weeks Status: Acute ICD Code: O48.0 (2) Uterine leiomyoma Status: Acute ICD Code: D25.9 Pain Evaluation: Adequate Pain Control Post plan: Continue routine post care, Anticipate discharge home today Attending Statement I saw patient and agree with above evaluation and plan Mary Arciniega DO Aug 21, 2016 06:33 Chantell Love MD Aug 26, 2016 19:48
--- NOTE | 2016-08-21 09:43 | PCM.DC.OB ---
Obstetrical Discharge Summary Date of Service Aug 21, 2016 Date of hospital admission Aug 19, 2016 at 11:01 Date of Discharge: Aug 21, 2016 Providers Admitting Physician: Elba Ramachandran MD Primary Care Physician: Ora Attending Physician: Elba Ramachandran MD Diagnosis at Time of Discharge Post- day 1 from Multiple uterine fibroids . Problems: (1) Post-term , 40-42 weeks of gestation Status: Acute ICD Code: O48.0 (2) Uterine leiomyoma Status: Acute ICD Code: D25.9 Brief History and Physical: 36y/o 020 who presented to the [facility] at 41 weeks 3 days and estimated due date of 08/09/2016. Initially scheduled for an induction of labor on August 18 but failed to progress and was sent home with the plan to reschedule. However, [facility] complaining of increased frequency in contractions, found to be 80% effaced, 3cm dilated,-2station and sent to the hospital. Her was complicated by multiple uterine fibroids, advanced maternal age, and lemon sign on US with negative aneuploidy screening and no evidence of open neural tube defects on repeat US. Hospital Course: 36 y/o G3 now P1 (A2) who presented to the [facility] at 41 weeks 3 days in active labor. She was fully dilated at around 0530 and began pushing. Thick meconium stained amniotic fluid during was noted and the global creative chairman notified and present at delivery. Infant was delivered at 0923 with an intact placenta with a three vessel cord at 0929hrs. A small second degree perineal laceration was noted and repaired. Discharged on post- day 1 with pain well controlled, normal lochia, ambulating and voiding without difficulty. No issues with . ([Ascorbic Acid]) 500 MG TABLET 500 MG PO DAILY Prescribed by: DANIEL HOWE DO Docusate Sodium (Colace) 100 Mg Capsule 100 MG PO BID Prescribed by: DANIEL HOWE DO Ferrous Sulfate (Feosol) 325 Mg Tablet 325 MG PO BIDWM Prescribed by: DANIEL HOWE DO Ibuprofen (Ibuprofen) 800 Mg Tablet 800 MG PO Q8H PRN PRN For Pain Prescribed by: DANIEL HOWE DO Valacyclovir HCl (Valtrex) 500 Mg Tablet 500 MG PO BID Prescribed by: RUBY NORIEGA MD Follow-up plan OB post- follow up at [facility] in 6weeks. Discharge Diet: No restrictions Discharge Activity-General: Pelvic Rest for 6 weeks Patient instructions Continue your vitamin. Please take the iron and vitamin c together for your anemia. Be sure to follow up in 6 weeks at [facility]. Pelvic rest for 6 weeks (nothing per vagina including intercourse, tampons) If you have a fever greater than 100.4, please call [facility]. There is always someone control clerk repairs to talk to. If you have an increase in bleeding, call [facility]. If you have a lot of bleeding suddenly, especially if you have symptoms of dizziness & weakness with it, get emergency help. If you start experiencing extreme depression, especially if you feel that you are a danger to yourself or your family, seek emergency help. You have been through a lot -- BE SURE TO TAKE CARE OF YOURSELF. Attending Statement: Instructed that heavy vaginal bleeding, severe abdominal pain, foul smelling discharge, fever more than 100.4 or short of breath, need to go to ER for evaluation Daniel Howe DO Aug 21, 2016 08:25 Chantell Love MD Aug 26, 2016 19:50
[2016-08-21 10:45] VITALS: BP 125/75; PULSE 59; RESP 16
--- NOTE | 2016-08-21 12:28 | NUR ---
Social Work Note: Initial Assessment D/A: Pt is a 36 year old female who gave to BB on 08/20/2016. Pt reported that she lives with FOB in [place] and explained that she intends to return home upon discharge. Pt indicated that she has everything that she will need at home to care for BB. Pt explained that FOB is supportive and planning to be involved and available to assist in caring for BB. FOB is Jim Suarez. Pt reported that she is not enrolled in any social research assistant because she is not eligible due to her income. Pt indicated that she and FOB have a strong support network of friends and family in the immediate area. Pt reported no history of DV. Pt reported no legal history. Pt indicated that BB is her first child and she has no previous CPS involvement. Pt explained that she smoked THC 2-3 times in the last three weeks of to help her sleep and for nausea. Pt indicated that she last smoked THC about one week ago. Pt denied all other CD. Pt reported no history of mental illness. Pt reported no additional needs prior to discharge. P: Pt reported a strong supportive network of friends and family. Pt indicated that she feels safe at home. Pt admitted to recent THC use. HEEL ROOM SUPERVISOR explained that the THC use would prompt a call to CPS to provide an informational report. Pt indicated that she understood this. staff field engineer reported that Pt and family have been appropriate and affectionate with BB while in the hospital. staff field engineer reported no other concerns. HEEL ROOM SUPERVISOR called CPS and provided the above information to Nevaeh Bateman who indicated that THC use would not likely screen in for further investigation. Pt to be discharged home once medically cleared by [facility] . AMOS Sheehan, AAC
== END 2016-08-21 12:45 | disposition home or self-care (01) | DRG 775 ==
LOC: FBCO 10:41 → FBC 11:01
PROVIDERS: ADMIT Obstetrics & Gynecology; ATTEND Obstetrics & Gynecology
PROC: 10907ZC Drainage of Amniotic Fluid, Therapeutic from Products of Conception, Via Natural or Artificial Opening (ICD-10-PCS; 2016-08-19)
PROC: 10H073Z Insertion of Monitoring Electrode into Products of Conception, Via Natural or Artificial Opening (ICD-10-PCS; 2016-08-19)
PROC: 10E0XZZ Delivery of Products of Conception, External Approach (ICD-10-PCS; principal; 2016-08-20)
PROC: 0KQM0ZZ Repair Perineum Muscle, Open Approach (ICD-10-PCS; 2016-08-20)
DX: O70.1 Second degree perineal laceration during delivery (principal); Z37.0 Single live birth; Z3A.41 41 weeks gestation of pregnancy; O09.523 Supervision of elderly multigravida, third trimester; O48.0 Post-term pregnancy; D25.9 Leiomyoma of uterus, unspecified; O77.0 Labor and delivery complicated by meconium in amniotic fluid